=== PATIENT | female | born 1950 | race Caucasian/White ===

== ENCOUNTER 2020-03-22 13:08 | Outpatient (CLI) | payer MEDICARE, OTHER, SELFPAY ==
--- NOTE | 2020-03-22 13:20 | MM_ITS ---
WS: [id number] BILATERAL SCREENING DIGITAL MAMMOGRAM WITH CAD HISTORY: SCREENING COMPARISON: 05/23/2018 and 05/16/2017 Bilateral CC and MLO views submitted. Computer aided detection analyzed. Breast composition: There are scattered areas of fibroglandular density. No suspicious masses, microc alcifications or architectural distortion. Benign calcifications in each breast. MM/[place] [id number] IMPRESSION: BI-RADS: 2-Benign FOLLOW UP: 1 Year Follow-up
--- NOTE | 2020-03-22 14:27 | XR_ITS ---
WS: [id number] SCREENING DEXA SCAN [employer] CLINICAL INFORMATION: POST MENOPAUSAL COMPARISON: FINDINGS: The L1-L4 bone mineral density measures 1.022 g/cm2. This corresponds to a T score score of -1.3 and Z score of 0.7. Left femoral neck bone mineral density measures 0.792 g/cm2. This corresponds to a T score of -1.7 an d Z score of -0.1. Right femoral neck bone mineral density measures 0.803 g/cm2. This corresponds to a T score -1.6of an d Z score of 0.0. Mean femoral neck bone mineral density measures 0.798 g/cm2. This corresponds to a T score of -1.7 an d Z score of 0.0. XR/XR DEXA axial skeleton* [id number] IMPRESSION: Osteopenia Patient's FRAX calculated 10 year probability for major osteoporotic fracture i s 18.1 % and osteoporotic hip fracture is 4.9%.
== END 2020-03-22 13:09 | disposition home or self-care (01) ==
LOC: RADSHAW 13:17
PROVIDERS: PCP Physician Assistant; Visit Provider Physician Assistant
DX: Z12.31 Encounter for screening mammogram for malignant neoplasm of breast (principal); Z78.0 Asymptomatic menopausal state; M85.89 Other specified disorders of bone density and structure, multiple sites
CPT/HCPCS: 77067; 77080

== ENCOUNTER 2021-06-22 07:49 | Outpatient (CLI) | payer MEDICARE, OTHER, SELFPAY ==
--- NOTE | 2021-06-22 07:55 | MM_ITS ---
WS: [id number] Bilateral screening digital mammogram, 06/22/2021 Clinical Data: SCREENING Comparison: 03/22/2020, 05/23/2018, 05/16/2017, 11/08/2014, 09/20/2011. Findings: The breast parenchymal pattern shows fibroglandular tissue. No spiculated masses or clustered calcifi cations are seen. There are no secondary signs of carcinoma. Mole markers are on both breasts. There are benign calcifications in both breasts. MM/[place] [id number] Impression: 1. Negative bilateral mammogram unchanged. 2. Recommend annual screening mammograms. BIRADS: 1-Negative FOLLOW UP: 1 Year Follow-up The CAD thread checker was used.
== END 2021-06-22 07:50 | disposition home or self-care (01) ==
LOC: RADSHAW 07:50
PROVIDERS: PCP Physician Assistant; Visit Provider Physician Assistant
DX: Z12.31 Encounter for screening mammogram for malignant neoplasm of breast (principal)
CPT/HCPCS: 77067

== ENCOUNTER 2022-07-27 12:38 | Outpatient (CLI) | payer MEDICARE, OTHER, SELFPAY ==
--- NOTE | 2022-07-27 13:12 | MM_ITS ---
WS: [id number] BILATERAL 3D TOMOSYNTHESIS DIGITAL DIAGNOSTIC MAMMOGRAPHY WITH CAD CLINICAL INFORMATION: SCREENING HISTORY: Six-month follow-up LEFT breast. RIGHT breast palpable abnormality. COMPARISON: December 23, 2021 TECHNIQUE: Bilateral CC, MLO, and ML views. FINDINGS: Scattered fibroglandular densities bilaterally. Palpable marker RIGHT lower inner quadrant. No suspic ious parenchymal normalities in this area. Ultrasound described below. Previously described 5 mm nodule near the 12:00 position not as well seen today on mammogram. Ultraso und described below. ULTRASOUND BREAST BILATERAL TECHNIQUE: Ultrasound bilateral breast focused area of concern. CLINICAL INFORMATION: SCREENING COMPARISON: Ultrasound LEFT December 23, 2021 FINDINGS: RIGHT BREAST: Ultrasound RIGHT breast at the 4 and 5:00 position and 10:00 position. No underlying pa renchymal abnormalities. No cystic or solid lesions. LEFT BREAST: Ultrasound LEFT breast. Previously described cysts are no longer visualized. However the re is a ill-defined hypoechoic irregular lesion taller than wide measuring 5.2 x 5.4 x 7.3 mm at the 12:00 position 2 cm from the nipple. Recommend further evaluation with ultrasound-guided biopsy. MM/[place] [id number] IMPRESSION: BI-RADS: 4-Suspicious Finding-Biopsy Should Be Considered FOLLOW UP: US Guided Biopsy Recommended RECOMMEND ULTRASOUND-GUIDED BIOPSY LEFT BREAST LESION.
== END 2022-07-27 12:39 | disposition home or self-care (01) ==
LOC: RAD 12:41
PROVIDERS: PCP Physician Assistant; Visit Provider Physician Assistant
DX: Z12.31 Encounter for screening mammogram for malignant neoplasm of breast (principal)
CPT/HCPCS: 77063; 77067

== ENCOUNTER 2022-08-14 13:48 | Outpatient (CLI) | payer MEDICARE, OTHER, SELFPAY ==
--- NOTE | 2022-08-14 13:56 | XR_ITS ---
WS: [id number] SCREENING DEXA SCAN [employer] CLINICAL INFORMATION: POSTMENOPAUSAL COMPARISON: 2019 FINDINGS: The L1-L4 bone mineral density measures 0.978 g/cm2. This corresponds to a T score score of -1.7 and Z score of 0.3. Left femoral neck bone mineral density measures 0.776 g/cm2. This corresponds to a T score of -1.8 an d Z score of -0.1. Right femoral neck bone mineral density measures 0.774 g/cm2. This corresponds to a T score -1.9of an d Z score of -0.1. Mean femoral neck bone mineral density measures 0.775 g/cm2. This corresponds to a T score of -1.8 an d Z score of -0.1. XR/XR DEXA axial skeleton* [id number] IMPRESSION: Osteopenia lumbar spine. Osteopenia femoral necks. Patient's FRAX calculated 10 year probability for major osteoporotic fracture i s 20.8 % and osteoporotic hip fracture is 6.5%. Bone mineral density lumbar spine has decreased -4.3% since 2019 Bone mineral density femoral necks since decreased -2.9% since 2019
== END 2022-08-14 13:49 | disposition home or self-care (01) ==
LOC: RAD 13:52
PROVIDERS: PCP Physician Assistant; Visit Provider Physician Assistant
DX: Z78.0 Asymptomatic menopausal state (principal); M85.89 Other specified disorders of bone density and structure, multiple sites
CPT/HCPCS: 77080

== ENCOUNTER → 2023-05-30 11:11 | Outpatient (BNVA) | payer MEDICARE, OTHER, SELFPAY | PROVIDERS: PCP Physician Assistant; Visit Provider Nurse Practitioner Family | DX: L71.0 Perioral dermatitis (principal); B07.0 Plantar wart; L84 Corns and callosities; L57.8 Other skin changes due to chronic exposure to nonionizing radiation; D22.4 Melanocytic nevi of scalp and neck; L81.4 Other melanin hyperpigmentation | CPT/HCPCS: 99214 ==

== ENCOUNTER → 2023-07-25 08:25 | Outpatient (BNVA) | payer MEDICARE, OTHER, SELFPAY | PROVIDERS: PCP Physician Assistant; Visit Provider Podiatrist Foot & Ankle Surgery | DX: Q82.8 Other specified congenital malformations of skin (principal) | CPT/HCPCS: 99203 ==

== ENCOUNTER 2023-12-19 09:57 | Outpatient (CLI) | payer MEDICARE, OTHER, SELFPAY ==
--- NOTE | 2023-12-19 10:11 | MM_ITS ---
WS: [id number] BILATERAL SCREENING DIGITAL TOMOSYNTHESIS MAMMOGRAM WITH CAD HISTORY: SCREENING COMPARISON: 07/27/2022, 06/22/2021 Bilateral CC and MLO views with tomosynthesis and synthetic mammography submitted. Computer aided det ection analyzed. Breast composition: There are scattered areas of fibroglandular density. No suspicious masses, microc alcifications or architectural distortion. Benign scattered calcifications within each breast. MM/[place] [id number] IMPRESSION: BI-RADS: 2-Benign FOLLOW UP: 1 Year Follow-up
== END 2023-12-19 09:58 | disposition home or self-care (01) ==
LOC: RAD 09:59
PROVIDERS: PCP Physician Assistant; Visit Provider Physician Assistant
DX: Z12.31 Encounter for screening mammogram for malignant neoplasm of breast (principal); R92.323 Mammographic fibroglandular density, bilateral breasts; R92.1 Mammographic calcification found on diagnostic imaging of breast
CPT/HCPCS: 77063; 77067

== ENCOUNTER → 2024-03-03 13:56 | Outpatient (BNVA) | payer MEDICARE, OTHER, SELFPAY | PROVIDERS: PCP Physician Assistant; Visit Provider Podiatrist Foot & Ankle Surgery | DX: Q82.8 Other specified congenital malformations of skin (principal) | CPT/HCPCS: 99213 ==